=== PATIENT | female | born 1945 | race Hispanic/Latino ===

== ENCOUNTER 2020-01-06 05:46 | Observation (INO) | payer MEDICARE, OTHER ==
[2020-01-02 12:59] LABS: BASOPHILS # (AUTO) 0.1 (0.0-0.1); BASOPHILS % 1.2 % (0.0-1.0); EOSINOPHILS # (AUTO) 0.1 (0.0-0.4); EOSINOPHILS % 1.1 % (0.0-6.0); HEMATOCRIT 41.8 % (34.2-44.1); HEMOGLOBIN 13.5 g/dL (12.0-16.0); LYMPHOCYTES # (AUTO) 2.1 (1.0-3.2); LYMPHOCYTES % 27.3 % (18.0-39.1); MEAN CORPUSCULAR HEMOGLOBIN 29.1 pg (28-32); MEAN CORPUSCULAR HGB CONC 32.3 g/dL (31-35); MEAN CORPUSCULAR VOLUME 90.1 fL (81-99); MONOCYTES # (AUTO) 0.6 (0.2-0.8); MONOCYTES % 8.3 % (4.4-11.3); NEUTROPHILS # (AUTO) 4.7 (2.1-6.9); NEUTROPHILS % 61.8 % (38.7-80.0); PLATELET COUNT 197 x10e3/uL (140-360); RED BLOOD COUNT 4.64 x10e6/uL (3.6-5.1); RED CELL DISTRIBUTION WIDTH 13.9 % (11.7-14.4)
--- NOTE | 2020-01-02 13:15 | Diagnostic Imaging Report ---
EXAMINATION: CHEST 2 VIEWS INDICATION: Pre-operative COMPARISON: None FINDINGS: LINES/TUBES:None LUNGS:The lungs are well-inflated. No focal consolidation or pulmonary edema. PLEURA:No pleural effusion or pneumothorax. MEDIASTINUM:The cardiomediastinal silhouette appears normal in size and shape. Atherosclerotic calcifications of the thoracic aorta. BONES/SOFT TISSUES:No acute osseous injury. ABDOMEN:No free air under the diaphragm. IMPRESSION: No focal pneumonia or pulmonary edema. Signed by: Tong Lugo MD on 01/02/2020 1:12 PM
[~2020-01-06] VITALS: Ht 144.8 cm; Wt 61.8 kg
[~2020-01-06 05:46] MED LIST: LIPITOR10 MG PO; LOSARTAN POTAS100 MG PO; MOBIC7.5 MG PO
[2020-01-06] MEDS ORDERED: DEXAMETHASONE SOD PHOS 10 MG/1 ML VIAL ONE (06:17)
[2020-01-06] MEDS ORDERED: CELECOXIB 200 MG CAP ONE (06:17)
[2020-01-06] MEDS ORDERED: CEFAZOLIN SOD 1 GM/NS 50ML 100 ML IV ONE (06:18)
[2020-01-06] MEDS ORDERED: GABAPENTIN 300 MG CAP ONE (06:18)
[2020-01-06] MEDS ORDERED: ROPIVACAINE 246.25 MG, EPINEPHRINE HCL 1:1000 1ML 0.5 MG, CLONIDINE HCL 0.08 MG, KETORO... INJ ONE ×5 (08:00)
[2020-01-06] MEDS ORDERED: BACITRACIN 50,000 UNIT VIAL ONE (08:21)
[2020-01-06] MEDS ORDERED: TRANEXAMIC ACID 1,000 MG/10 ML ML ONE (08:22)
[2020-01-06] MEDS ORDERED: VANCOMYCIN HCL 1,000 MG ONE (08:22)
[2020-01-06] MEDS ORDERED: SODIUM CHLORIDE 0.9% 500ML 500 ML ONE (08:23)
[2020-01-06] MEDS ORDERED: ACETAMINOPHEN 1000 MG/100 ML 100 ML IV ONE (11:31)
[2020-01-06] MEDS ORDERED: ACETAMINOPHEN 650 MG SUPP PR PRN (12:00)
[2020-01-06] MEDS ORDERED: HYDROCODONE/APAP 5MG-325MG TAB PO PRN (12:00)
[2020-01-06] MEDS ORDERED: DOCUSATE SODIUM 100 MG CAP PO PRN (12:00)
[2020-01-06] MEDS ORDERED: HYDROCODONE/APAP 7.5MG-325MG 1 EA TAB PO PRN (12:00)
[2020-01-06] MEDS ORDERED: DIPHENHYDRAMINE HCL INJ 50 MG/ML VIAL IV PRN (12:00)
[2020-01-06] MEDS ORDERED: ONDANSETRON HCL INJ 2MG/ML 2ML 2 MG/ML VIAL IV PRN (12:00)
[2020-01-06] MEDS ORDERED: KETOROLAC TROMETHAMINE 30 MG/ML VIAL IV PRN (12:00)
--- NOTE | 2020-01-06 12:49 | Diagnostic Imaging Report ---
EXAM: KNEE LEFT 1-2 VIEWS DATE: 01/06/2020 12:20 PM INDICATION: Postop COMPARISON: None FINDINGS: There are postsurgical changes from total left knee arthroplasty. Hardware appears intact and in anatomic alignment. There is no evidence for acute fracture or dislocation. No focal lytic or blastic abnormality is identified. There is associated soft tissue fluid and gas, likely presurgical. Overlying skin ame noted. IMPRESSION: Expected postsurgical changes from recent left knee arthroplasty. Signed by: Dr. Jason Skinner MD on 01/06/2020 12:46 PM
[2020-01-06] MEDS ORDERED: ROPIVACAINE 0.5% 5 MG/ML 30 ML SDV ONE (14:00)
[2020-01-06] MEDS ORDERED: LIDOCAINE 2% /EPINEPHRINE 20 ML SDV INJ ONE (14:00)
[2020-01-06] MEDS ORDERED: ONDANSETRON HCL INJ 2MG/ML 2ML 2 MG/ML VIAL ONE (14:14)
[2020-01-06] MEDS ORDERED: LIDOCAINE HCL 2% LOCAL INJ 5 ML SDV VIAL INJ ONE (14:14)
[2020-01-06] MEDS ORDERED: SEVOFLURANE INHAL SOLN 250 ML PEN BTL ONE (14:14)
[2020-01-06] MEDS ORDERED: PROPOFOL IV EMULSION 10 MG/ML 20 ML VIAL ONE (14:14)
[2020-01-06 15:00] VITALS: BP 124/69
[2020-01-06] MEDS: SODIUM CHLORIDE 0.9% 1000ML 1,000 ML IV SCH (15:00)
--- NOTE | 2020-01-06 15:00 | NUR ---
INITIAL ASSESSMENT COMPLETE, ORIENTED TO ROOM, CALL LIGHT IN REACH, FOOT PUMPS ON, ICE TO LEFT KNEE, SMILEY DRESSING INTACT WITHOUT DRAINAGE, IV INFUSING, VS WNL, NO PAIN NOTED, NO DISTRESS NOTED, CONTINUE TO MONITOR PT
[2020-01-06] MEDS ORDERED: MIDAZOLAM HCL 2 MG/2 ML VIAL ONE (15:21)
[2020-01-06] MEDS ORDERED: FENTANYL CITRATE/PF 100MCG/2 ML INJ ONE (15:21)
--- NOTE | 2020-01-06 15:29 | NUR ---
DR NELSON OFFICE PREARRANGED FOLLOWING DISCHARGE PLAN OF: HOME TO [address] , [address] [facility] CONFIRMED WITH CHRISTINE [phone] DME -CPM PROVIDED BY [facility] [place] [facility] [phone] PT DECLINED 3 IN 1, AND I PROVIDED ROLLING WALKER WITH WHEELS AND OBTAINED SIGNATURES GIL SIGNED AND ON CHART COPY LEFT WITH PATIENT GAVE CARD FOR QUESTIONS AND OR CONCERNS.
[2020-01-06] MEDS ORDERED: ACETAMINOPHEN 1000 MG/100 ML IV PRN (16:00)
[2020-01-06 16:40] VITALS: BP 129/70
[2020-01-06] MEDS: CELECOXIB 100 MG CAP PO SCH (16:57)
[2020-01-06] MEDS: ASPIRIN 325 MG TAB PO SCH (16:57)
--- NOTE | 2020-01-06 17:00 | NUR ---
PT SITTING UP FOR DINNER, NO DISTRESS NOTED, CALL LIGHT IN REACH
[2020-01-06] MEDS: CEFAZOLIN SOD 1 GM/NS 50ML 50 ML IV SCH (18:00)
--- NOTE | 2020-01-06 18:30 | NUR ---
PT TOLERATING CPM AT 50, WILL CONTINUE TO MONITOR PT, CALL LIGHT IN REACH
--- NOTE | 2020-01-06 19:10 | NUR ---
PATIENT RECEIVED AT BED SIDE REPORT. PATIENT IS RESTING IN BED, AAOX3. RESP EVEN AND UNLABORED. NO DISTRESS NOTED AT THIS TIME. LEFT KNEE DRESSING NOTED, DRY AND INTACT. CALL LIGHT WITHIN REACH. INSTRUCT TO CALL FOR ASSISTANCE. BED LOW/LOCKED. SIDE RAIL UP X2. CONTINUE TO MONITOR CLOSELY
[2020-01-06 20:00] VITALS: BP 132/66
--- NOTE | 2020-01-06 20:41 | Operative Report ---
DATE OF PROCEDURE: 01/06/2020 SURGEON: Marlon Lui MD ASSISTANT PROFESSOR NURSE EDUCATION: Swapnil Wood, certified PA. PREOPERATIVE DIAGNOSIS: Osteoarthritis, left knee. POSTOPERATIVE DIAGNOSIS: Osteoarthritis, left knee. PROCEDURE: Left total knee arthroplasty. INDICATIONS: The patient is a 74-year-old lady, who has a long history of osteoarthritis involving her left knee. She has failed conservative management and would now like to proceed with a left total knee replacement. The risks and benefits of the procedure have been explained. All of her questions have been answered. She states she understands and wishes to proceed. PROCEDURE IN DETAIL: The patient was brought to the operating room and placed under general anesthetic. She received a regional block, prophylactic antibiotics, and tranexamic acid in the holding area. Her left lower extremity was prepped and draped in a sterile manner. A preoperative time-out was performed. The extremity was exsanguinated and a proximal tourniquet was inflated to 300 mmHg. An anterior incision with a medial parapatellar arthrotomy was performed. Clear synovial fluid was evacuated from the joint. Care was taken to minimize dissection and avoid development of spaces. Soft tissue releases were performed to bring the knee up into flexion with the patella everted. Complete loss of articular cartilage with medial wear was noted. Meniscal remnants, marginal osteophytes in the cruciate ligaments were removed. A Monsalve and [employer]. knee system was used. An extramedullary cutting guide was used to resect the proximal tibia. The tibial base plate was a size #2. The central fin punch was impacted and the attention was directed towards the distal femur. An intramedullary cutting guide was used to resect the distal femur in 6 degrees of valgus and rotation referencing off a combination of landmarks including Whitesides line, the epicondylar axis, and the posterior condyles. The femoral component was a size 4. The anterior and posterior cuts were made. Trial reductions were performed. I felt that an 11 mm ultracongruent tibial insert provided appropriate soft tissue balancing in full extension and 90 degrees of flexion. The patella was resurfaced with a 26 mm x 7.5 mm patellar button. The patellar tracking was noted to be concentric. The thickness was checked before and after resurfacing and was right around 20 mm. The trial implants were then all removed. A 100 mL premixed pericapsular MARYJANE injection was placed into the surrounding soft tissue. The knee was thoroughly irrigated with a shower-tip pulsatile lavage. All bone cuts had been irrigated with a spray mixture of diluted vancomycin and polymyxin spray. The components were cemented into place using a single mix of high viscosity Biomet cement. Care was taken to remove extravasated cement. The wound was further irrigated while the cement cured. The arthrotomy was then closed after sprinkling 500 mg of vancomycin powder into the deep wound. The knee was put through flexion and extension to ensure a secure closure of the arthrotomy. The skin was closed with subcuticular Vicryl and ame. A sterile Aquacel bandage was applied. The patient was extubated and transported to the recovery room in stable condition. Blood loss was minimal. All needle and sponge counts were correct. Marlon Lui MD DR/VARGAS /[id number]
[2020-01-06] MEDS ORDERED: ZOLPIDEM TARTRATE 5 MG TAB PO PRN (21:00)
[2020-01-06 22:30] VITALS: BP 132/66
[2020-01-07] VITALS: BP 136/70
[2020-01-07] MEDS: SODIUM CHLORIDE 0.9% 1000ML 1,000 ML IV SCH ×2 (00:30→08:00)
[2020-01-07] MEDS: CEFAZOLIN SOD 1 GM/NS 50ML 50 ML IV SCH ×2 (02:30→08:51)
[2020-01-07 04:00] VITALS: BP 112/57
--- NOTE | 2020-01-07 05:17 | Consultation ---
DATE OF CONSULTATION: REASON FOR CONSULTATION: Postop medical management. HISTORY OF PRESENT ILLNESS: The patient is a 74-year-old lady, status post total left knee arthroplasty for end-stage osteoarthritis, who has minimal pain postoperatively, and denies any chest pain, fever, chills, nausea, vomiting, headache, shortness of breath, or dizziness on review of systems. PAST MEDICAL HISTORY: Significant for arthritis, high blood pressure, hyperlipidemia. MEDICATIONS: See MAR. ALLERGIES: NONE. SOCIAL HISTORY: Nonsmoker. , lives at home. FAMILY HISTORY: Noncontributory. PHYSICAL EXAMINATION: VITAL SIGNS: Temperature 97.8, pulse 76, blood pressure 136/70, sats 100% on room air. GENERAL: No apparent distress. NECK: Supple. No lymphadenopathy. CARDIOVASCULAR: Regular rate and rhythm. LUNGS: Clear to auscultation bilaterally. ABDOMEN: Good bowel sounds. Soft, nontender. EXTREMITIES: No clubbing or cyanosis. Neurologic: Nonfocal. ASSESSMENT AND PLAN: 1. Left knee pain. Continue with physical therapy and postoperative pain control. 2. Anemia. Check a CBC. 3. Hypertension. We will restart her medicines at discharge. 4. Hyperlipidemia. We will continue with her medications at discharge. Please see office chart for full details. MD GONSALO Winter/VARGAS /[id number]
[2020-01-07 05:21] LABS: HEMATOCRIT 34.8 % (34.2-44.1); HEMOGLOBIN 11.3 g/dL (12.0-16.0)
--- NOTE | 2020-01-07 06:15 | NUR ---
STARTED PATIENT ON CPM AT 60. PATIENT IS TOLERATING WELL. CONTINUE TO MONITOR CLOSELY
--- NOTE | 2020-01-07 07:00 | NUR ---
RECEIVED PATIENT AWAKE RESTING IN BED NO S/S OF DISTRESS. BED LOW, WHEELS LOCKED, SIDE RAILS X2. CALL LIGHT IN REACH WILL CONTINUE TO MONITOR PATIENT.
[2020-01-07 08:14] VITALS: BP 131/65
[2020-01-07] MEDS: ASPIRIN 325 MG TAB PO SCH (08:51)
[2020-01-07] MEDS: CELECOXIB 100 MG CAP PO SCH (08:51)
[2020-01-07 09:24] VITALS: BP 131/65
--- NOTE | 2020-01-07 11:20 | NUR ---
REMOVED PATIENTS IV. CATHETER TIP INTACT AND PRESSURE DRESSING APPLIED.
--- NOTE | 2020-01-07 12:00 | NUR ---
PATIENT DISCHARGED FROM FACILITY. PATIENT GATHERED ALL PERSONAL BELONGINGS, DISCHARGE INSTRUCTIONS, AND FOLLOW UP INFORMATION. PATIENT LEFT UNIT IN WHEELCHAIR AND WENT HOME VIA PRIVATE AUTO. NO S/S OF DISTRESS LEAVING FACILITY.
== END 2020-01-07 12:02 | disposition home or self-care (01) ==
LOC: OR 05:46 → PACU V 12:01 → MED/SURG 14:21
PROVIDERS: ADMIT Specialist; ATTEND Specialist
DX: M17.0 Bilateral primary osteoarthritis of knee (principal); I10 Essential (primary) hypertension; G47.33 Obstructive sleep apnea (adult) (pediatric); Z90.710 Acquired absence of both cervix and uterus; Z11.59 Encounter for screening for other viral diseases
CPT/HCPCS: 27447; 36415 ×2; 71046; 73560; 85014; 85018; 85025; 86850; 86900; 86920; 87635; 93005; 96361; 97116 ×2; 97161; 97530; C1713; G0378 ×2; J0131; J0171; J0690 ×2; J1100; J1885; J2001 ×2; J2250; J2405; J2704; J2795; J3010; J3370; J7030 ×2; J7040